=== PATIENT | male | born 2000 | race Caucasian/White ===

== ENCOUNTER 2020-01-02 09:54 | Day surgery (SDC) | payer MEDICAID ==
[~2020-01-02] VITALS: Ht 193 cm; Wt 117.9 kg
--- NOTE | ~2020-01-02 | OP ---
PATIENT NAME: ZEYAD BARTLETT III MEDICAL RECORD: [id number] :99 LOCATION:D.OPS ADMISSION DATE: SURGEON: FREDDY RANDOLPH MD DATE OF OPERATION: 01/02/2020 PREOPERATIVE DIAGNOSIS: Mid shaft fracture of the right fifth metacarpal displaced. POSTOPERATIVE DIAGNOSIS: Mid shaft fracture of the right fifth metacarpal displaced. PROCEDURE: Open reduction and internal fixation of the right midshaft metacarpal fracture. SURGEON: Freddy Randolph MD ANESTHESIA: General. INTRAOPERATIVE COMPLICATIONS: None. SUMMARY OF PATHOLOGIC FINDINGS: The patient had a transverse fracture of the midshaft of the right metacarpal consistent with the preoperative radiographs and diagnosis. This was displaced and internal fixation yielded good and excellent intraoperative results. OPERATIVE SUMMARY IN DETAIL: After obtaining the appropriate preoperative orthopedic surgery consents as well as anesthetic consultation, evaluation and clearance, the patient was brought to operating room and placed on table in supine position. After adequate general laryngeal mask airway was administered, the patient's right upper extremity was prepped and draped in routine sterile fashion. The arm was elevated and exsanguinated, tourniquet inflated to 250 mmHg. At this point, the appropriate timeout was taken and agreed upon by all given the patient's unique identifiers. A mid lateral incision was made, taken down to the level of the periosteum, which was elevated. The fracture was identified. The fracture was then reduced to an anatomic position and then the plate was put into place using the appropriate serial drill and fill fashion with both compression and locking screws. Having completed the entire fixation, final radiographs were submitted both AP, lateral, and oblique showing excellent fixation and anatomic oriental orthodox. Having completed this, wound was copiously irrigated and closed with 3-0 Vicryl followed by subcuticular 5-0 Monocryl. Sterile dressings were applied. The patient was then awakened and taken to recovery room in stable condition. All final needle and sponge counts were correct. TRANSINT:[id number] Voice Confirmation ID: [id number] DOCUMENT ID: [id number] FREDDY RANDOLPH MD CC: [id number] DICTATION DATE: 01/03/20 0604 MEDIA ANALYTICS MANAGER: 01/03/20 1742 [facility] 01/02/20 [id number] [place] [address]
[~2020-01-02 09:54] MED LIST: HYDROCODON-ACE1 EAC7 PO; ZYRTEC10 MG PO
[2020-01-02 10:42] VITALS: BP 147/75; Ht 193 cm; Wt 117.9 kg
[2020-01-02] MEDS ORDERED: HYDROCODON-ACE1 EA10 PO (16:26)
--- NOTE | 2020-01-02 18:14 | NUR ---
1800 IV REMOVED AND PRESSURE HELD DRESSING APPLIED. 1814 ASSISTED WITH GETTING DRESSED AND D/C HOME
== END 2020-01-02 18:15 | disposition home or self-care (01) ==
LOC: D.OPS 09:54 → D.PAN 12:15 → D.OPS 12:15
PROVIDERS: ATTEND Orthopaedic Surgery
DX: S62.326A Displaced fracture of shaft of fifth metacarpal bone, right hand, initial encounter for closed fracture (principal); X58.XXXA Exposure to other specified factors, initial encounter; M79.641 Pain in right hand